=== PATIENT | female | born 1935 | race Caucasian/White ===

== ENCOUNTER 2019-08-24 12:13 | Emergency (ER) | payer BC, MEDICARE ==
[2019-08-24] MEDS ORDERED: ACETAMINOPHEN 325 MG TABLET PO ONE (13:02)
[2019-08-24] MEDS ORDERED: IBUPROFEN 600 MG TABLET PO ONE (13:02)
--- NOTE | 2019-08-24 13:02 | ER Document Report ---
ED Medical Screen (RME) - General Chief Complaint: Neck Pain >24hrs old Stated Complaint: RIGHT SIDE PAIN Time Seen by Provider: 08/24/19 12:58 Mode of Arrival: Wheelchair Information source: Patient Notes: 84-year-old female presented to ED for neck pain. She has a pinched 12 cranial nerve and is being treated for that in [place] but she just flew from [place] to [place] Sunday. She states the pain started on the right side where the pinched nerve is but now is bad enough that is on both sides. She states at home she is on meloxicam but they stopped it recently. She states her doctor usually keeps her pretty stable and does not need treatment but she flew Sunday. She has a history of glaucoma, and blood pressure. She is alert oriented respirations regular nonlabored speaking in full sentences. She is allergic to penicillin and IVP dye. I have greeted and performed a rapid initial assessment of this patient. A comprehensive ED assessment and evaluation of the patient, analysis of test results and completion of medical decision making process will be conducted by an additional ED providers. Physical Exam - Vital signs Vitals: Temp Pulse Resp BP Pulse Ox 98.6 F 84 16 155/90 H 96 08/24/19 12:52 08/24/19 12:52 08/24/19 12:52 08/24/19 12:52 08/24/19 12:52 Course - Vital Signs Vital signs: Temp Pulse Resp BP Pulse Ox 98.6 F 84 16 155/90 H 96 08/24/19 12:52 08/24/19 12:52 08/24/19 12:52 08/24/19 12:52 08/24/19 12:52
[2019-08-24 15:12] LABS: ABSOLUTE EOSINOPHILS # (AUTO) 0.1 10^3/uL (0.0-0.6); ABSOLUTE LYMPHOCYTES (AUTO) 1.2 10^3/uL (0.5-4.7); ABSOLUTE NEUT (AUTO) 7.5 10^3/uL (1.7-8.2); BASOPHILS % (AUTO) 0.4 % (0-2); EOSINOPHILS % (AUTO) 0.6 % (0-6); HEMATOCRIT 42.3 % (36.0-47.0); HEMOGLOBIN 14.1 g/dL (12.0-15.5); LYMPHOCYTES % (AUTO) 12.5 % (13-45); MEAN CORPUSCULAR HEMOGLOBIN 28.6 pg (27.0-33.4); MEAN CORPUSCULAR HGB CONC 33.2 g/dL (32.0-36.0); MEAN CORPUSCULAR VOLUME 86 fl (80-97); MONOCYTES % (AUTO) 9.8 % (3-13); PLATELET COUNT 234 10^3/uL (150-450); RED BLOOD COUNT 4.92 10^6/uL (3.72-5.28); RED CELL DISTRIBUTION WIDTH 14.1 % (11.5-14.0); SEGMENTED NEUTROPHILS % (AUTO) 76.7 % (42-78); TOTAL CELLS COUNTED % (AUTO) 100 %; WHITE BLOOD COUNT 9.7 10^3/uL (4.0-10.5)
[2019-08-24 15:34] LABS: APPEARANCE,URINE SLIGHTLY-CLOUDY; BILIRUBIN,URINE NEGATIVE (NEGATIVE); COLOR,URINE YELLOW; GLUCOSE, URINE NEGATIVE (NEGATIVE); KETONES,URINE NEGATIVE (NEGATIVE); PROTEIN,URINE NEGATIVE (NEGATIVE); URINE SPECIFIC GRAVITY 1.013
[2019-08-24 15:36] LABS: ALBUMIN 4.1 g/dL (3.5-5.0); ALKALINE PHOSPHATASE 100 U/L (38-126); ANION GAP 13 (5-19); ASPARTATE AMINO TRANSFERASE 22 U/L (14-36); BILIRUBIN,DIRECT 0.1 mg/dL (0.0-0.4); BILIRUBIN,TOTAL 0.9 mg/dL (0.2-1.3); BLOOD UREA NITROGEN 21 mg/dL (7-20); CALCIUM 9.7 mg/dL (8.4-10.2); CARBON DIOXIDE 22 mmol/L (22-30); CHLORIDE 100 mmol/L (98-107); GLUCOSE 97 mg/dL (75-110)
[2019-08-24] MEDS ORDERED: KETOROLAC TROMETHAMINE INJ/PF 30 MG/1 ML SDV IM ONE (15:40)
[2019-08-24] MEDS ORDERED: DEXAMETHASONE SOD PHOS INJ 10 MG/1 ML VIAL IM ONE (15:40)
--- NOTE | 2019-08-24 15:45 | ER Document Report ---
HPI - HPI Time Seen by Provider: 08/24/19 12:58 Pain Level: 5 Notes: Patient is an 84-year-old female with a history of chronic neck pain and pinched nerve in her C1/C2 area who presents complaining of acute on chronic neck pain on the right side. Patient states that this is normally where she has her pain. Pain does not radiate. Patient states that movement makes the pain worse. No new injury. Patient states that she is here visiting from [place] and has been taking a break from meloxicam which works well for her. No history of spinal abscess or IV drug abuse. No history of diabetes. She is able to eat and drink without difficulty. She is urinating normally and having normal bowel movements. Denies any headache, fever, head injury, changes in visi on/speech/mentation/hearing, URI, sore throat, chest pain, palpitations, syncope, cough, shortness of breath, wheeze, dyspnea, abdominal pain, nausea/vomiting/diarrhea, urinary retention, dysuria, hematuria, numbness/tingling, paralysis, saddle anesthesia, or rash. - ROS Systems Reviewed and Negative: Yes All other systems reviewed and negative - REPRODUCTIVE Reproductive: DENIES: : Past Medical History - General Information source: Patient - Social History Smoking Status: Never Smoker Family History: Reviewed & Not Pertinent Patient has suicidal ideation: No Patient has homicidal ideation: No Vertical Provider Document - CONSTITUTIONAL Agree With Documented VS: Yes Notes: PHYSICAL EXAMINATION: GENERAL: Well-appearing, well-nourished and in no acute distress. A&Ox4. Answers questions appropriately. HEAD: Atraumatic, normocephalic. Non-tender. No sanderson sign EYES: Pupils equal round and reactive to light, extraocular movements intact, sclera anicteric, conjunctiva are normal. ENT: Nares patent and without discharge. oropharynx clear without exudates. No tonsilar hypertrophy or erythema. Moist mucous membranes. NECK: LROM due to pain on lateral rotation. No rigidity. No midline tenderness. Spurling negative. + reproducible tenderness to the Rt c-paraspinal mm and the rt trapezius muscle to palpation with trigger points noted. LUNGS: Breath sounds clear to auscultation bilaterally and equal. No wheezes rales or rhonchi. HEART: Regular rate and rhythm without murmurs, rubs, gallops. Musculoskeletal: Ext b/l: FROM to passive/active. Strength 5+/5. No deficits noted. No bony tenderness of extremities. Back: FROM to passive/active. Strength 5+/5. No vertebral point tenderness, stepoffs, or deformities. No other bony tenderness or ecchymosis. Extremities: No cyanosis, clubbing, or edema b/l. Peripheral pulses 2+. Capillary refill less than 2 seconds. NEUROLOGICAL: Cranial nerves grossly intact. Normal speech, normal gait. Normal sensory, motor exams. Reflexes 2+ b/l. PSYCH: Normal mood, normal affect. SKIN: Warm, Dry, normal turgor, no rashes or lesions noted. - INFECTION CONTROL TRAVEL OUTSIDE OF THE [place] IN LAST 30 DAYS: No Course - Re-evaluation Re-evalutation: 08/24/19 15:43 Patient is an afebrile, well-hydrated, 84-year-old female who presents to the ED with acute on chronic rt neck pain, suspect benign, and UTI. Vitals are acceptable. PE is otherwise unremarkable for any focal neurological deficits. Patient was given Decadron, Toradol. She has no significant tachycardia, tachypnea, or hypoxia. She is nontoxic-appearing and is tolerating p.o. without difficulties. There are no signs of infection. No other red flag symptoms noted. No other labs or imaging warranted at this time based on H&P. Low suspicion for any meningitis, fracture, expanding/ruptured AAA, cauda equina syndrome, epidural mass lesion/abscess, herniated disc causing severe spinal stenosis, or other systemic infection at this time. Patient is aware that this condition can change from initial presentation and that she needs monitor symptoms closely for any acute changes. I will send her home with a prescription for robaxin (short course, precautions reviewed), macrobid, and lidoderm patch. Conservative measures otherwise for symptoms. Recheck with your PCM in 3-5 days. Consider consult with orthopedic/physical therapy. Return to the ED with any worsening/concerning symptoms otherwise as reviewed discharge. Patient is in agreement. - Vital Signs Vital signs: Temp Pulse Resp BP Pulse Ox 98.6 F 84 16 155/90 H 96 08/24/19 12:52 08/24/19 12:52 08/24/19 12:52 08/24/19 12:52 08/24/19 12:52 - Laboratory Result Diagrams: 08/24/19 14:55 08/24/19 14:55 Laboratory results interpreted by me: 08/24/19 08/24/19 08/24/19 14:55 14:55 15:12 RDW 14.1 H Lymph % (Auto) 12.5 L Sodium 135.0 L BUN 21 H Est GFR (MDRD) Non-Af 55 L Urine Blood SMALL H Urine Nitrite (Reflex) POSITIVE H Urine Urobilinogen 2.0 H Leukocyte Esterase Rfl MODERATE H Urine Ascorbic Acid 20 H Discharge - Discharge Clinical Impression: Neck pain on right side, Acute UTI (urinary tract infection) Condition: Stable Disposition: HOME, SELF-CARE Instructions: Nitrofurantoin ([facility]), Urinary Tract Infection ([facility]) Additional Instructions: Rest, Ice Tylenol/ibuprofen as needed Light stretches daily Strength exercises as able Moist heat and massage may help F/u with your PCP in 3-5 days for a recheck Consider consult(s) with Orthopedics/physical therapy for ongoing/worsening symptoms Return to the ED with any worsening symptoms and/or development of fever, headache, chest pain, palpitations, syncope, shortness of breath, trouble breathing, abdominal pain, n/v/d, blood in stool/urine, loss of control of bowel/bladder, urinary retention, muscle weakness/paralysis, saddle anesthesia, numbness/tingling, or other worsening symptoms that are concerning to you. Prescriptions: Lidocaine [Lidoderm 5% (700 mg) Transdermal Patch] 1 patch TP DAILY #10 adh..patch Nitrofurantoin/Nitrofuran Mac [Macrobid 100 mg Capsule] 1 tab PO BID #14 capsule Methocarbamol [Robaxin 500 mg Tablet] 500 mg PO BID PRN #10 tablet PRN Reason: Forms: Elevated Blood Pressure Referrals: WILLIE IBARRA JR, DO [ACTIVE PROVISIONAL STAFF] - Follow up as needed
[2019-08-24 16:27] VITALS: BP 135/81
== END 2019-08-24 16:30 | disposition home or self-care (01) ==
LOC: ER 12:13
DX: N39.0 Urinary tract infection, site not specified (principal); G89.29 Other chronic pain; M54.2 Cervicalgia; Z88.0 Allergy status to penicillin
CPT/HCPCS: 99283; 96374; 96375; 36415; 87086; 85025; 87088; 80053; 81001; 87186; L0120; J1885; J1100